=== PATIENT | female | born 1940 | race Caucasian/White ===

== ENCOUNTER 2016-11-16 00:35 | Emergency (ER) | payer MEDICARE, OTHER, MEDICAID ==
[~2016-11-16 00:35] MED LIST: ADULT ASPIRIN81 MG; ALPHAGAN P15 ML; AMARYL1 M1 PO; AMARYL2 MG; AMARYL2 MG PO; AMBIEN5 M1 PO; ANTIVERT12.5 M1 PO; ANTIVERT25 MG PO; ATIVAN0.5 MG PO; AUGMENTIN 500-1 EAC2 PO; CENTRUM SILVER1 TA; CENTRUM SILVER1 TA PO; DURAGESIC1 EAC1 TOP; DURAGESIC1 EAC2 TOP; DURAGESIC1 EAC3 TOP; DURAGESIC1 PAT TOP; DURAGESIC1 PATCH .7 TOP; DURAGESIC1 PATCH TOP; FORTICAL3.7 ML NS; GLIMEPIRIDE2 MG PO; IPRAT-ALBUT 0.5-3 ML IH; KEPPRA500 M1 PO; KEPPRA500 M3 PO; LASIX20 M1 PO; LATANOPROST2.5 M1 OP; LEVOTHROID137 MCG PO; LEVOTHROID88 MCG; LOVENOX30 MG/0.1 SC; LUMIGAN2.5 ML; MECLIZINE HCL25 M3 PO; MELOXICAM7.5 MG PO; MILK OF MAGNESIA PO; MIRALAX17 G2 PO; NEXIUM40 M1 PO; NEXIUM40 MG; NORCO 5/325 TAB1 TAB PO; NORTRIPTYLINE H25 M1 PO; NORTRIPTYLINE H25 MG PO; OMEPRAZOLE20 M1 PO; OMEPRAZOLE40 M2 PO; PERCOCET 5-3251 EACH PO; PHENOBARBITAL15 MG; PHENOBARBITAL15 MG PO; POTASSIUM CHLO20 ME3 PO; RESTORIL15 MG; SENNA PLUS TAB1 EAC1 PO; SYNTHROID137 MC1 PO; TEMAZEPAM15 M1 PO; TEMAZEPAM15 MG PO; TIMOPTIC2.5 M OP; TOPROL XL25 M1 PO; TRAVATAN 0.0042.5 ML EACH EYE; TRIAMTERENE HCT PO; TYLENOL325 M2 PO; ULTRAM50 M1 PO; VICODIN 5/500 T1 TAB PO; XANAX0.5 M1 PO; ZOCOR20 MG; ZOCOR20 MG PO; ZOCOR40 M1 PO
[2016-11-16 01:21] LABS: BASO % 0.6 % (0-2); EOS % 5.4 % (0-7); EOSINOPHIL ABSOLUTE COUNT 0.3 tho/cmm (0.0-0.7); HCT-HEMATOCRIT 29.3 % (34.0-49.0); HGB-HEMOGLOBIN 9.7 gm/dl (12.0-15.5); IMMATURE GRANULOCYTES ABSOLUTE 0.01 tho/cmm (0-0.03); IMMATURE GRANULOCYTES PERCENT 0.2 % (0-0.3); LYMPH % 31.2 % (20-45); LYMPH ABSOLUTE COUNT 1.7 tho/cmm (0.8-4.5); MCH (MEAN CORPUSCULAR HGB) 30.7 pg (28.0-32.0); MCHC MEAN CORPUSCULAR HGB CONC 33.1 % (32.0-36.0); MCV (MEAN CELL VOLUME) 92.7 fl (82.0-96.0); MEAN PLATELET VOLUME 9.7 cmc (9.4-12.4); MONO % 8.6 % (0-12); MONOCYTE ABSOLUTE COUNT 0.5 tho/cmm (0.0-1.2); NEUTROPHIL ABSOLUTE COUNT 2.9 tho/cmm (1.6-8.0); NEUTROPHIL-AUTOMATED 2.9 tho/cmm (1.6-8.0); PLATELET COUNT 210 tho/cmm (150-450); RED BLOOD COUNT 3.16 mil/cmm (4.00-5.20); RED CELL DISTRIBUTION WIDTH 12.7 % (12.4-16.4); WHITE BLOOD COUNT 5.4 tho/cmm (4.0-10.0)
[2016-11-16 01:33] LABS: BLOOD UREA NITROGEN 51 mg/dl (6-24); CALCIUM 9.5 mg/dl (8.5-10.5); CARBON DIOXIDE-VENOUS 33 mmol/L (22-32); CHLORIDE 100 mmol/l (96-110); CREATININE 1.91 mg/dl (0.50-1.10); GLUCOSE 100 mg/dL (70-110); SODIUM 139 mmol/L (135-145); eGFR VALUE FOR BLACK 29 mL/Min
[2016-11-16 01:34] LABS: ANION GAP 11 mmol/L (0-20); MAGNESIUM 2.4 mg/dl (1.8-2.6); POTASSIUM 4.8 mmol/L (3.7-5.1)
[2016-11-16 02:17] LABS: URINE APPEARANCE CLEAR; URINE BILIRUBIN NEGATIVE (NEG); URINE BLOOD NEGATIVE (NEG); URINE COLOR YELLOW; URINE GLUCOSE (UA) NEGATIVE (NEG); URINE KETONE NEGATIVE (NEG); URINE LEUKOCYTE ESTERASE POSITIVE (NEG); URINE NITRITE NEGATIVE (NEG); URINE PROTEIN NEGATIVE (NEG); URINE SPECIFIC GRAVITY 1.005 (1.003-1.030)
[2016-11-16 02:25] LABS: URINE EPITHELIAL CELLS RARE /[HPF] (0-10); URINE RBC 0-1 /[HPF] (0-5)
[2017-02-11] MEDS ORDERED: CITRATE OF MAG300 M1 PO (16:54)
[2017-02-11] MEDS ORDERED: ENEMA133 M4 PR (16:56)
[2017-02-11] MEDS ORDERED: NEURONTIN100 M1 PO (16:57)
[2017-02-11] MEDS ORDERED: BISCOLAX10 MG PR (16:57)
[2017-02-11] MEDS ORDERED: ZOFRAN4 M2 PO (16:58)
[2017-02-11] MEDS ORDERED: HYDROCODON-ACE1 EA16 PO (16:59)
[2017-02-11] MEDS ORDERED: TRAVEL SICKNESS25 M1 PO (16:59)
[2017-02-11] MEDS ORDERED: CERTAVITE SR-A1 EACH PO (17:00)
[2017-02-11] MEDS ORDERED: MELATONIN5 M5 PO (17:02)
[2017-02-11] MEDS ORDERED: FLONASE ALLERG9.9 ML (17:04)
[2017-02-11] MEDS ORDERED: SERTRALINE HCL100 M5 PO (17:05)
[2017-02-12] MEDS ORDERED: LASIX20 M1 PO (11:45)
[2017-02-12] MEDS ORDERED: HIBICLENS118 ML TP (11:46)
== END 2016-11-16 04:10 ==
LOC: EDMED 00:35
PROVIDERS: Emergency Medicine
DX: S06.0X0A Concussion without loss of consciousness, initial encounter (principal); I12.9 Hypertensive chronic kidney disease with stage 1 through stage 4 chronic kidney disease, or unspecified chronic kidney disease; E11.22 Type 2 diabetes mellitus with diabetic chronic kidney disease; N18.9 Chronic kidney disease, unspecified; D64.9 Anemia, unspecified; F41.9 Anxiety disorder, unspecified; G40.909 Epilepsy, unspecified, not intractable, without status epilepticus; Z79.899 Other long term (current) drug therapy; Z79.890 Hormone replacement therapy; W06.XXXA Fall from bed, initial encounter; Y92.129 Unspecified place in nursing home as the place of occurrence of the external cause
CPT/HCPCS: P9612